=== PATIENT | male | born 1990 | race African-American/Black ===

== ENCOUNTER 2016-07-07 21:26 | Inpatient (IN) | payer SELFPAY ==
[~2016-07-07] VITALS: Ht 172.7 cm; Wt 99.2 kg
[2016-07-07] MEDS ORDERED: KETOROLAC TROMETHAMINE 30 MG/ML VIAL IV STA (22:04)
[2016-07-07] MEDS ORDERED: CEFTRIAXONE SOD INJ 1 GM ADDVIAL IV STA (22:08)
[2016-07-07] MEDS ORDERED: SODIUM CHLORIDE 0.9% 1000ML 1,000 ML IV ONE (22:15)
[2016-07-07] MEDS ORDERED: ACETAMINOPHEN IV 1,000 MG in EMPTY BAG 0 ML IV ONE (22:15)
[2016-07-07 22:16] LABS: URINE APPEARANCE CLEAR (CLEAR); URINE BILIRUBIN NEG (NEG); URINE COLOR DK YELLOW; URINE EPITHELIAL CELL AUTO >30 /lpf (0-5); URINE NITRITE NEG (NEG); URINE PH 5.5 (4.5-7.5); URINE SPECIFIC GRAVITY 1.037 (1.000-1.030); UROBILINOGEN NEG (NEG); ZZUR CULT IF INDIC CLEAN CATCH NO
[2016-07-07 22:17] LABS: MANUAL MICROSCOPIC REQUIRED? NO; REVIEW REQ? YES
[2016-07-07 22:34] LABS: BASO % 0.2 %; BASO ABS # 0.02 K/uL (0-0.2); COMPLETE YES; EOS % 0.2 %; HEMATOCRIT 45.1 % (42-52); IG% 0.2 %; LYMPH % 18.8 %; LYMPH ABS # 2.12 K/uL (1.2-3.4); MEAN CELL VOLUME 84.5 fL (80-100); MEAN CORPUSCULAR HEMOGLOBIN 29.2 pg (25-34); MEAN CORPUSCULAR HGB CONC 34.6 g/dl (32-36); MEAN PLATELET VOLUME 9.4 fL (7.4-10.4); MONO % 9.2 %; NEUT % 71.4 %; PLATELET COUNT 260 K/uL (130-400); RED BLOOD COUNT 5.34 M/uL (4.7-6.1); WHITE BLOOD COUNT 11.29 K/uL (4.8-10.8)
[2016-07-07 22:54] LABS: CALCIUM 8.9 mg/dl (8.5-10.1)
[2016-07-07 22:57] LABS: BUN/CREATININE RATIO 9.9 (10-20); C-REACTIVE PROTEIN 8.22 mg/dl (0-0.29); CREATININE 1.3 mg/dl (0.60-1.40); MAGNESIUM 2.2 mg/dl (1.8-2.4); POTASSIUM 3.4 mmol/L (3.5-5.1)
[2016-07-07] MEDS ORDERED: QUET1TAB30 PO (23:09)
[2016-07-07] MEDS ORDERED: SERT25TA PO (23:09)
[2016-07-07] MEDS ORDERED: ACETAMINOPHEN 1000 MG/100 ML IV IV ONE (23:10)
[2016-07-07 23:12] LABS: ALB/GLOB RATIO 0.8 (0.9-2); THYROID STIMULATING HORMONE 2.53 uIu/ml (0.300-4.500)
[2016-07-07 23:16] LABS: ANTI-STREP O SCR: 5YRS OR > POS IU/ml (<200 IU); ANTI-STREP O TITRE: 5YR OR > 200 IU/ml (<200 IU)
[2016-07-07 23:27] LABS: LYME DISEASE AB IGG NEG (NEG); LYME DISEASE AB IGM NEG (NEG)
[2016-07-07] MEDS ORDERED: POTASSIUM CHLORIDE 10 MEQ TABCR PO STA (23:32)
--- NOTE | 2016-07-08 00:20 | EMERGENCY ROOM VISIT NOTE ---
History First contact with patient: 21:57 Chief Complaint: URINARY SYMPTOMS Stated Complaint: PAINFUL URINATION Nursing Triage Summary: patient reports sore throat,patient reports pain with urination and fever History of Present Illness The patient is a 26 year old male who presents to the Emergency Room with complaints of sore throat symptoms for the past 4 or 5 days. The patient states that he began with painful urination and fever today. He did go to urgent care clinic where a rapid strep was negative. He has had a fever at home , and is not taking anything [id number] for his symptoms. He does not report chest pain, chest tightness, shortness of breath. No flank pain. He has not had similar symptoms in the past. Review of Systems More than 10 systems were reviewed and otherwise negative with the exception of history of present illness. Past Medical/Surgical History No chronic medical disease Family History No pertinent family history Social History Smoking Status: Never Smoker Occupation Status: employed Current/Historical Medications Scheduled Quetiapine Fumarate (Seroquel), 25 MG PO DAILY Sertraline (Zoloft), 25 MG PO DAILY Allergies Coded Allergies: No Known Allergies (Unverified , 07/07/16) Physical Exam Vital Signs Date Time Temp Pulse Resp B/P Pulse Ox O2 Delivery O2 Flow Rate FiO2 07/07/16 23:15 93 18 144/71 97 07/07/16 21:29 39.1 124 18 142/78 95 Room Air Physical Exam VITALS: Vitals are noted on the nurse's note and reviewed by myself. Vital signs with tachycardia and fever GENERAL: Well-developed, well-nourished, black male who appears ill but nontoxic. Patient is cooperative with the examination. HEAD: Normocephalic atraumatic. EARS: External ear normal. External auditory canals clear, tympanic membranes pearly longo without erythema or effusion bilaterally. EYES: Pupils equal round and reactive to light and accommodation. Conjunctivae without injection, sclerae without icterus. Extraocular movements intact. NOSE: Patent, turbinates without inflammation or discharge. MOUTH: Mucous membranes moist. Tonsils are 2+ enlarged with exudates. No evidence of peritonsillar abscess. Uvula midline. Airway patent. NECK: Supple without nuchal rigidity. No lymphadenopathy. No thyromegaly. Cervical spine is nontender. HEART: Regular rate and rhythm without murmurs gallops or rubs. LUNGS: Clear to auscultation bilaterally without wheezes, rales or rhonchi. No retractions or accessory muscle use. ABDOMEN: Positive normal bowel sounds x 4. Soft, nontender, without masses or organomegaly. No guarding or rebound tenderness. No CVA tenderness. MUSCULOSKELETAL: No muscle atrophy, erythema, or edema noted. Full range of motion without joint tenderness in all extremities. Medical Decision & Procedures Laboratory Results 07/07/16 22:20 Red Blood Count 5.34, Mean Corpuscular Volume 84.5, Mean Corpuscular Hemoglobin 29.2, Mean Corpuscular Hemoglobin Concent 34.6, Mean Platelet Volume 9.4, Neutrophils (%) (Auto) 71.4, Lymphocytes (%) (Auto) 18.8, Monocytes (%) (Auto) 9.2, Eosinophils (%) (Auto) 0.2, Basophils (%) (Auto) 0.2, Neutrophils # (Auto) 8.07, Lymphocytes # (Auto) 2.12, Monocytes # (Auto) 1.04, Eosinophils # (Auto) 0.02, Basophils # (Auto) 0.02 07/07/16 22:20 Test 07/07/16 21:55 07/07/16 22:20 Urine Color DK YELLOW Urine Appearance CLEAR (CLEAR) Urine pH 5.5 (4.5-7.5) Urine Specific [place] 1.037 (1.000-1.030) Urine Protein TRACE (NEG) Urine Glucose (UA) NEG (NEG) Urine Ketones TRACE (NEG) Urine Occult Blood 1+ (NEG) Urine Nitrite NEG (NEG) Urine Bilirubin NEG (NEG) Urine Urobilinogen NEG (NEG) Urine Leukocyte Esterase TRACE (NEG) Urine WBC (Auto) 5-10 /hpf (0-5) Urine RBC (Auto) 5-10 /hpf (0-4) Urine Hyaline Casts (Auto) 10-30 /lpf (0-5) Urine Epithelial Cells (Auto) >30 /lpf (0-5) Urine Bacteria (Auto) NEG (NEG) Urine Renal Epithelial Cells /lpf (0-5) White Blood Count 11.29 K/uL (4.8-10.8) Red Blood Count 5.34 M/uL (4.7-6.1) Hemoglobin 15.6 g/dL (14.0-18.0) Hematocrit 45.1 % (42-52) Mean Corpuscular Volume 84.5 fL (80-100) Mean Corpuscular Hemoglobin 29.2 pg (25-34) Mean Corpuscular Hemoglobin Concent 34.6 g/dl (32-36) Platelet Count 260 K/uL (130-400) Mean Platelet Volume 9.4 fL (7.4-10.4) Neutrophils (%) (Auto) 71.4 % Lymphocytes (%) (Auto) 18.8 % Monocytes (%) (Auto) 9.2 % Eosinophils (%) (Auto) 0.2 % Basophils (%) (Auto) 0.2 % Neutrophils # (Auto) 8.07 K/uL (1.4-6.5) Lymphocytes # (Auto) 2.12 K/uL (1.2-3.4) Monocytes # (Auto) 1.04 K/uL (0.11-0.59) Eosinophils # (Auto) 0.02 K/uL (0-0.5) Basophils # (Auto) 0.02 K/uL (0-0.2) RDW Standard Deviation 42.5 fL (36.4-46.3) RDW Coefficient of Variation 13.8 % (11.5-14.5) Immature Granulocyte % (Auto) 0.2 % Immature Granulocyte # (Auto) 0.02 K/uL (0.00-0.02) Erythrocyte Sedimentation Rate 62 mm/hr (0-14) Anion Gap 7.0 mmol/L (3-11) Est Creatinine Clear Calc Drug Dose 99.2 ml/min Estimated GFR () 87.9 Estimated GFR (Non- 75.8 BUN/Creatinine Ratio 9.9 (10-20) Lactic Acid Level 1.1 mmol/L (0.4-2.0) Calcium Level 8.9 mg/dl (8.5-10.1) Magnesium Level 2.2 mg/dl (1.8-2.4) Total Bilirubin 0.4 mg/dl (0.2-1) Aspartate Amino Transf (AST/SGOT) 71 U/L (15-37) Alanine Aminotransferase (ALT/SGPT) 42 U/L (12-78) Alkaline Phosphatase 63 U/L (45-117) Total Creatine Kinase 3107 U/L (39-308) C-Reactive Protein 8.22 mg/dl (0-0.29) Total Protein 8.9 gm/dl (6.4-8.2) Albumin 4.0 gm/dl (3.4-5.0) Globulin 4.9 gm/dl (2.5-4.0) Albumin/Globulin Ratio 0.8 (0.9-2) Thyroid Stimulating Hormone (TSH) 2.530 uIu/ml (0.300-4.500) Lyme Disease IgG Antibody NEG (NEG) Lyme Disease IgM Antibody NEG (NEG) Monoscreen NEG (NEG) Anti-Streptolysin O Antibody Screen POS IU/ml (<200 IU) Anti-Streptolysin O Antibody Titer 200 IU/ml (<200 IU) Date/Time Source Procedure Growth Status 07/07/16 21:55 Throat Group A Streptococcus Screen - Final SPECIMEN POSITIVE FOR GROUP A BETA ST... Complete 07/07/16 21:55 Throat Group A Streptococcus Screen (REMY) - Final Complete Medications Administered Medications (Trade) Dose Ordered Sig/Danika Route Start Time Stop Time Status Last Admin Dose Admin Sodium Chloride 1,000 ml @ 999 mls/hr Q1H1M ONCE IV 07/07/16 22:15 07/07/16 23:15 DC 07/07/16 22:15 999 MLS/HR Acetaminophen/ Empty Bag (Ofirmev Iv/ Empty Iv Bag 100ml) 100 ml @ 400 mls/hr NOW ONCE IV 07/07/16 22:15 07/07/16 22:29 DC 07/07/16 22:15 400 MLS/HR Ketorolac Tromethamine (Toradol Inj) 30 mg NOW STAT IV 07/07/16 22:04 07/07/16 22:07 DC 07/07/16 22:45 30 MG Ceftriaxone Sodium (Rocephin Inj) 1 gm NOW STAT IV 07/07/16 22:08 07/07/16 22:09 DC 07/07/16 22:45 1 GM ED Course Physical exam and history were performed. Nursing notes and EMR were reviewed. Patient appears to have sore throat and urine symptoms for the past several days. The patient is febrile and tachycardic on presentation. He is ill appearing. IV access was established and labs were obtained. The patient was hydrated and medicated as above. Rapid strep was performed and was positive. The patient's urine dip was with blood and protein, which was quite concerning. The patient was given Rocephin IV after blood cultures and lactic acid were gathered. The patient's blood work is as above and was reviewed. He does not have a significantly elevated white blood cell count, gross anemia, or significant electrolyte imbalance. His CK is elevated at over 3100 which is concerning for rhabdomyolysis. Additionally the patient's ASO titer is positive. His lactic acid and the lab is negative, and kidney function is currently within normal limits. Overall the patient did have some improvement of his symptoms after hydration and medication. I have concern for the patient's status secondary to his rhabdomyolysis and possible poststreptococcal glomerulonephritis. He is currently without obvious acute kidney injury, but this is certainly a concern. The patient case was discussed with the [facility] Hospitalist, who agreed to evaluate the patient here in the emergency department for further management. Please see their dictation for further patient course, plan, and disposition. The chart was completed utilizing [email or web address] Speech Voice Recognition Software. Grammatical errors, random word insertions, pronoun errors, and incomplete sentences are an occasional consequence of this system due to software limitations, ambient noise, and hardware issues. Any formal questions or concerns about the content, text, or information contained within the body of this dictation should be directly addressed to the provider for clarification. . Medical Decision Differential diagnoses includes, but is not limited to: Infection, sepsis, SIRS , rhabdomyolysis, post streptococcal glomerulonephritis, strep pharyngitis, acute kidney injury, dehydration, and others Impression Primary Impression: Rhabdomyolysis Additional Impressions: Acute streptococcal pharyngitis Elevated anti-streptolysin O antibodies Departure Information Referrals No Doctor, Assigned (PCP) Patient Instructions My [facility] Problem Qualifiers
[2016-07-08] MEDS ORDERED: IBUPROFEN 200 MG TAB PO PRN (01:00)
[2016-07-08] MEDS ORDERED: ONDANSETRON INJ 2 MG/ML 2 ML VIAL IV PRN (01:00)
[2016-07-08] MEDS ORDERED: KETOROLAC TROMETHAMINE 30 MG/ML VIAL IV PRN (01:00)
[2016-07-08] MEDS ORDERED: LORAZEPAM 2 MG/ML 1 ML VIAL IV PRN (01:00)
[2016-07-08] MEDS ORDERED: TRAMADOL HCL 50 MG TAB PO PRN (01:00)
[2016-07-08] MEDS: NSS + 20MEQ KCL 1000ML 1,000 ML IV SCH ×5 (01:54→21:01)
[2016-07-08 02:00] VITALS: BP 143/87; PULSE 98; TEMP 37; O2SAT 97
[2016-07-08] MEDS ORDERED: SERTRALINE HCL 50 MG TAB PO ONE (02:32)
[2016-07-08] MEDS ORDERED: QUETIAPINE FUMARATE 25 MG TAB PO ONE (02:32)
[2016-07-08 04:10] VITALS: BP 143/87; PULSE 98; TEMP 37; O2SAT 97; Ht 172.7 cm; Wt 99.2 kg
[2016-07-08] MEDS ORDERED: LEVOFLOXACIN 500 MG TAB PO SCH (06:00)
[2016-07-08 06:15] LABS: BASO % 0.2 %; BASO ABS # 0.02 K/uL (0-0.2); COMPLETE YES; EOS % 0.2 %; HEMATOCRIT 40.8 % (42-52); IG% 0.1 %; LYMPH ABS # 2.48 K/uL (1.2-3.4); MEAN CORPUSCULAR HEMOGLOBIN 28.5 pg (25-34); MEAN CORPUSCULAR HGB CONC 33.6 g/dl (32-36); MEAN PLATELET VOLUME 9.3 fL (7.4-10.4); MONO % 5.8 %; NEUT % 69.7 %; PLATELET COUNT 239 K/uL (130-400); WHITE BLOOD COUNT 10.35 K/uL (4.8-10.8)
[2016-07-08 06:20] LABS: PROTHROMBIN TIME (PATIENT) 10.6 SECONDS (9.0-12.0)
[2016-07-08 07:03] LABS: BUN/CREATININE RATIO 10.2 (10-20); CREATININE 1.2 mg/dl (0.60-1.40); POTASSIUM 3.9 mmol/L (3.5-5.1)
[2016-07-08 07:19] VITALS: BP 113/71; PULSE 99; TEMP 37.3; O2SAT 95
--- NOTE | 2016-07-08 07:33 | DIAGNOSTIC IMAGING REPORT ---
CHEST ONE VIEW PORTABLE HISTORY: fever COMPARISON: None. FINDINGS: The lungs are clear. Cardiac silhouette is normal in size. No pleural effusions. No pneumothorax. IMPRESSION: No acute process. Electronically signed by: Asim Rushing M.D. 07/08/2016 7:32 AM Dictated Date/Time: 07/08/2016 7:31 AM
[2016-07-08] MEDS ORDERED: QUETIAPINE FUMARATE 25 MG TAB PO SCH ×2 (08:00→22:00)
[2016-07-08] MEDS ORDERED: LEVOFLOXACIN CONSULT ACTIVE PRN (08:00)
[2016-07-08] MEDS ORDERED: INFLUENZA VIRUS QUAD VACCINE 0.5 ML SYR IM. ONE (08:00)
[2016-07-08] MEDS ORDERED: INFLUENZA ADMINISTRATION CHARGE ONE (08:00)
[2016-07-08] MEDS ORDERED: SERTRALINE HCL 50 MG TAB PO SCH ×2 (08:00→22:00)
[2016-07-08] MEDS: ENOXAPARIN 40 MG/0.4 ML SYR SQ SCH (08:01)
--- NOTE | 2016-07-08 08:28 | HISTORY & PHYSICAL EXAMINATION ---
DATE OF ADMISSION: 07/08/2016 PRIMARY CARE PHYSICIAN: No primary care doctor. CHIEF COMPLAINT: Fever, sore throat, aches. HISTORY OF PRESENT ILLNESS: Hx obtained from px and records. Medical history significant for mood disorder. Last few days, patient noted a sore throat, some dysphagia symptoms. No chest pain, no sob. Px noted fever, chills, painful urination, dark urine. Seen at urgent care center. Initial strep swab was negative. Diagnosis was acute pharyngitis. Patient went to the ER for worsening symptoms. Strep screen was positive. UA noted to have trace wbc esterase. occult blood positive. Patient received Ceftriaxone in the Emergency Room. MEDICAL HISTORY: As above. SURGERIES: None. HOME MEDICATIONS: Include sertraline, Seroquel. ALLERGIES: No known drug allergies. FAMILY HISTORY: Hypertension. PERSONAL AND SOCIAL HISTORY: Nonsmoker. No chronic intake of alcohol. 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 REVIEW OF SYSTEMS: As per HPI, all other ROS negative. PHYSICAL EXAMINATION: VITAL SIGNS: Blood pressure was noted to be 142/78, pulse rate 154 and later 93, RR 18, temperature 37.1, sats 95% on room air. GENERAL: Noted to be slightly uncomfortable. No respiratory distress. Obese. SKIN: Normal color. HEENT: [place] palpebral conjunctivae. Dry mucosa. Enlarged tonsils, hyperemic. NECK: Short. LUNGS: Decreased breath sounds. HEART: Regular rate and rhythm. ABDOMEN: Some distention, nontender. EXTREMITIES: No edema, tenderness. NEUROLOGIC: No gross focality. LABS: Hemoglobin was noted to be 15.6, hematocrit 45, white cells 11.39, platelets 260. Sodium 133, potassium 3.4, chloride 97, CO2 of 29, BUN 13, creatinine 1.3. CPK 3107. ASSESSMENT: 1. Sepsis multifactorial : acute strep pharyngitis symptomatic urinary tract infection. 2. Rhabdomyolysis secondary to illness. 3. hypokalemia secondary to illness. 4. Mood disorder, stable on meds. PLAN: GMF ff Cultures. Levaquin to target both sources of infection. Monitor CPK response to IV fluids. Replace potassium DVT prophylaxis, Lovenox subQ. Full code. MTDD
[2016-07-08] MEDS ORDERED: LEVOFLOXACIN 250 MG TAB PO ONE (12:00)
[2016-07-08] MEDS: ACETAMINOPHEN 325 MG TAB PO PRN ×2 (13:25→18:55)
[2016-07-08] MEDS ORDERED: NURSING VERBAL MED ORDER ONE (14:00)
[2016-07-08 14:38] VITALS: BP 118/69; PULSE 95; TEMP 38; O2SAT 94
[2016-07-08] MEDS: AMPICILLIN INJ 250 MG in SODIUM CHLORIDE 0.9% 50ML 50 ML IV SCH (18:35)
--- NOTE | 2016-07-08 20:03 | Progress Note ---
Progress Note Date of Service July 08, 2016. Progress Note ATTENDING NOTE : pt admitted earlier today please refer to H&P documentation earlier today for detail Briefly 26 yo M recently moved form [place] 2 days back to [place] presented with 3-4 days of fever , sore throat found to have streptoccocal pharyngitis UA grossly positive also with elevated CPK > 3000 suggestive of rhabdomyolysis will change Abx to Ampicillin IV -DC Levaquin ( evidence of increasing resistance to quinolones ) ID eval requested rhabdomyolysis : pt mention of lifting heavy wt past few days for packing , recently moved form [facility] ~2 days back cont IV hydration renal function remains stable follow daily CPK DISPOSITION ; possible discharge home tomorrow if remains stable Clinically does not have any PCP locally willing to establish care with Family physician in [place] will update scheduling and arrange for post hospital follow up
[2016-07-09 00:04] VITALS: BP 115/63; PULSE 89; TEMP 37.2; O2SAT 98
[2016-07-09] MEDS: AMPICILLIN INJ 250 MG in SODIUM CHLORIDE 0.9% 50ML 50 ML IV SCH ×3 (01:00→11:53)
[2016-07-09] MEDS: NSS + 20MEQ KCL 1000ML 1,000 ML IV SCH ×2 (03:34→10:12)
[2016-07-09] MEDS: ACETAMINOPHEN 325 MG TAB PO PRN (04:10)
[2016-07-09 04:14] VITALS: TEMP 37.5
[2016-07-09 06:57] VITALS: BP 120/78; PULSE 85; TEMP 36.8; O2SAT 98
[2016-07-09] MEDS ORDERED: SERTRALINE HCL 50 MG TAB PO SCH (08:00)
[2016-07-09] MEDS: ENOXAPARIN 40 MG/0.4 ML SYR SQ SCH (08:02)
[2016-07-09 08:06] LABS: BUN/CREATININE RATIO 6.3 (10-20); CALCIUM 8.2 mg/dl (8.5-10.1); CREATININE 0.97 mg/dl (0.60-1.40); POTASSIUM 4.1 mmol/L (3.5-5.1)
--- NOTE | 2016-07-09 10:19 | Progress Note ---
Progress Note Date of Service July 09, 2016. Progress Note ID Consult Dictated #[id number] A/P: 1. Strep Pharyngitis 2. Leukocytosis -resolved 3. Fever - resolved -Can transition to po amoxicillin 500mg po tid with food to complete 10 days -ok for d/c from ID standpoint -thank you
[2016-07-09] MEDS ORDERED: SODIUM CHLORIDE 0.9% 1000ML 1,000 ML IV SCH (10:30)
[2016-07-09] MEDS ORDERED: LEVOFLOXACIN 750 MG TAB PO SCH (11:00)
--- NOTE | 2016-07-09 13:36 | INFECT. DISEASE CONSULTATION ---
DATE OF CONSULTATION: 07/09/2016 REQUESTING PHYSICIAN: Dr. Valdez. 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 He did have a history of subjective fevers and chills as well. Laboratory studies did show the patient to be in rhabdomyolysis with a CK greater than 3000. He also had a mild leukocytosis of 11.2. He was febrile upon admission with a temperature of 39.1. Overnight, his T-max was 38, but he is currently afebrile. He had a throat swab, which was positive for group A strep. Blood cultures were obtained and are negative. A Lyme screen was obtained and is negative as well. His sed rate is elevated at 62. His CRP is elevated as well. Urinalysis was unremarkable. He currently states he is feeling significantly better. He ate breakfast this morning with no issues. He denies any dysphasia or odynophagia. He denies any fevers or chills. He denies any neck pain or headache. He denies any chest pain, cough, shortness of breath, nausea, vomiting or diarrhea. He is asking to be discharged from the hospital on oral antibiotics. All remaining review of systems is reviewed and is unremarkable. PAST MEDICAL HISTORY: He has a past medical history significant for mood disorder. PAST SURGICAL HISTORY: He has no surgical history. ALLERGIES: He has no known drug allergies. FAMILY HISTORY: Noncontributory. SOCIAL HISTORY: Negative for tobacco use, alcohol use or drug use. He currently is a student. CURRENT MEDICATIONS: Include Zoloft, Seroquel, ampicillin, Lovenox, Tylenol, Zofran, Toradol, Advil, Motrin, and Ativan. PHYSICAL EXAMINATION: VITAL SIGNS: He is afebrile, pulse 85, respiratory rate 19, blood pressure 120/78, and oxygen saturation is 98% on room air. GENERAL: He is awake, alert and oriented x3. He is in no acute distress. HEENT: Mucous membranes are moist. There is a tonsillar swelling, but no exudate is noted. There is no cervical adenopathy. HEART: Regular. LUNGS: Clear bilaterally. ABDOMEN: Soft, nontender, and nondistended. EXTREMITIES: There is no lower extremity edema bilaterally. LABORATORY AND IMAGING STUDIES: CBC yesterday reveals a white blood cell count of 10.3, hemoglobin 13.7, and platelets 239. Sed rate on admission was 62. Chemistry panel today reveals sodium of 140, potassium 4.1, chloride 105, bicarbonate 30, BUN 6, creatinine 0.9, and glucose 92. Total CK is down to 2295. LFTs were within normal limits on admission. CRP was elevated at 8.2. Urinalysis was negative. Lyme titer is negative. Hemphill screen was negative. ASO was elevated at 200. Blood cultures from the are no growth to date x2 sets. C. diff was done on the and was negative. Throat swab was positive for group A strep in the ER. A chest x-ray done on the showed no acute disease. ASSESSMENT AND PLAN: 1. Strep pharyngitis. 2. Leukocytosis, resolved. At this time, he can be transitioned to oral amoxicillin 500 mg 3 times a day with food. He will need a total duration of 10 days. I do not see any contraindication to discharge home from the infectious disease standpoint. Thank you for this consultation.
[2016-07-09] MEDS ORDERED: IBUP-1105 PO (15:32)
--- NOTE | 2016-07-09 15:33 | Discharge Instructions ---
Discharge Instructions Date of Service July 09, 2016. Admission Reason for Admission: Rhabdomyolysis Discharge Discharge Diagnosis / Problem: STREPOCCUS PHARYNGITIS /RHABDOMYOLYSIS Discharge Goals Goal(s): Decrease discomfort, Diagnostic testing Activity Recommendations Activity Limitations: resume your previous activity . Instructions / Follow-Up Instructions / Follow-Up HOSPITAL FOLLOW UP ON 07/13/2016 11:00 AM Gideon Mccurdy MD [facility] LAB WORK : CPK LEVEL ON Saturday07/13/16 CONTINUE TO DRINK PLENTY FOR FLUID Current Hospital Diet Patient's current hospital diet: Low Lactose Diet Discharge Diet Recommended Diet: Low Lactose Diet Pending Studies Studies pending at discharge: yes List of pending studies: LAB WORK : CPK LEVEL ON Saturday07/13/16 Medical Emergencies . Who to Call and When: Medical Emergencies: If at any time you feel your situation is an emergency, please call 911 immediately. . Non-Emergent Contact Non-Emergency issues call your: Primary Care Provider . . "Provider Documentation" section prepared by Elizabeth Valdez. . VTE Core Measure Inpt VTE Proph given/why not?: Graciela South, SCD's
[2016-07-09] MEDS ORDERED: AMOX1TAB43 PO (15:34)
[2016-07-09 15:39] VITALS: BP 139/73; PULSE 92; TEMP 37.2; O2SAT 99
--- NOTE | 2016-07-09 16:30 | Progress Note ---
Internal Med Progress Note Date of Service: July 09, 2016. Provider Documentation: SUBJECTIVE: feels fine, no complain of fever or chills no SOB , chest discomfort no sore throat no complain of muscle aches or pain OBJECTIVE: Vital Signs-as noted below Exam: General-no sign of distress Eyes-sclera non icteric Lungs-CTA , no wheeze or rales Heart-regular S1/S2 Abdomen-soft, non tender Extremities-no lower ext edema Neuro-AAO x3, no focal neurological deficit Lab data as noted below. ASSESSMENT & PLAN: Streptoccocal pharyngitis on Abx to Ampicillin IV -DC Levaquin ( evidence of increasing resistance to quinolones ) ID eval requested appreciate input pt will be discharged home with Amoxicillin 500 mg PO BID for total 10 days remains afebrile , normal white count no complain of sore throat or cough pt is scheduled to see Dr Mccurdy at [facility] next 07/13 Rhabdomyolysis : pt mention of lifting heavy wt past few days for packing , recently moved form [facility] ~2 days back cont IV hydration renal function remains stable CPK level remain in ~1999 no complain of muscle pain or ache renal function remains stable stable to be discharged home today repeat CPK level on Saturday07/11/16 DVT PROPHYLAXIS low risk SCD and teds ambulate DISPOSITION Discharge home today recently moved to [place] follow up scheduled with [facility] on Saturday07/13/16 Vital Signs: Date Time Temp Pulse Resp B/P Pulse Ox O2 Delivery O2 Flow Rate FiO2 07/09/16 15:39 37.2 92 18 139/73 99 Room Air 07/09/16 08:00 Room Air 07/09/16 06:57 36.8 85 19 120/78 98 Room Air 07/09/16 04:14 37.5 07/09/16 00:30 Room Air 07/09/16 00:04 37.2 89 20 115/63 98 Room Air Lab Results: Results Past 24 Hours Test 07/09/16 07:01 Range/Units Sodium Level 140 136-145 mmol/L Potassium Level 4.1 3.5-5.1 mmol/L Chloride Level 105 98-107 mmol/L Carbon Dioxide Level 30 21-32 mmol/L Anion Gap 5.0 3-11 mmol/L Blood Urea Nitrogen 6 7-18 mg/dl Creatinine 0.97 0.60-1.40 mg/dl Est Creatinine Clear Calc Drug Dose 132.9 ml/min Estimated GFR () 125.2 Estimated GFR (Non- 108.1 BUN/Creatinine Ratio 6.3 10-20 Random Glucose 92 70-99 mg/dl Calcium Level 8.2 8.5-10.1 mg/dl Total Creatine Kinase 2295 39-308 U/L Microbiology Results 07/08/16 Urine Culture - Preliminary, Resulted NO GROWTH - LESS THAN 1,000 COLONIES/...
--- NOTE | 2016-07-09 16:37 | Discharge Summary ---
Discharge Summary Date of Service July 09, 2016. Discharge Summary Admission Date: July 08, 2016 at 00:31 Discharge Date: July 09, 2016 Discharge Disposition: Home Principal Diagnosis: STREPTOCOCCUS PHARYNGITIS /RHABDOMYOLYSIS Consultations: ID DR BORJA Medication Reconciliation New Medications: Amoxicillin & Pot Clavulanate (Amoxicillin/Clavulanate P) 1 Tab Tab 1 TAB PO BID for 10 Days, #20 TAB Ibuprofen (Ibuprofen) 200 Mg Tab 400 MG PO Q6H PRN for pain, #30 TAB TAKE WITH FOOD Continued Medications: Quetiapine Fumarate (Seroquel) 25 Mg Tab 25 MG PO DAILY, TAB Sertraline (Zoloft) 25 Mg Tab 25 MG PO DAILY, TAB Referrals At Discharge Follow up Referrals: Physician Referral - 07/13/16 with Gideon Mccurdy M.D. Admission Information HPI (per Admitting provider): DATE OF ADMISSION: 07/08/2016 PRIMARY CARE PHYSICIAN: No primary care doctor. CHIEF COMPLAINT: Fever, sore throat, aches. HISTORY OF PRESENT ILLNESS: Hx obtained from px and records. Medical history significant for mood disorder. Last few days, patient noted a sore throat, some dysphagia symptoms. No chest pain, no sob. Px noted fever, chills, painful urination, dark urine. Seen at urgent care center. Initial strep swab was negative. Diagnosis was acute pharyngitis. Patient went to the ER for worsening symptoms. Strep screen was positive. UA noted to have trace wbc esterase. occult blood positive. Patient received Ceftriaxone in the Emergency Room. MEDICAL HISTORY: As above. SURGERIES: None. HOME MEDICATIONS: Include sertraline, Seroquel. ALLERGIES: No known drug allergies. FAMILY HISTORY: Hypertension. PERSONAL AND SOCIAL HISTORY: Nonsmoker. No chronic intake of alcohol. Law student. -Citizen Of [place] ethnicity. REVIEW OF SYSTEMS: As per HPI, all other ROS negative. Physical Exam (per Admitting): PHYSICAL EXAMINATION: VITAL SIGNS: Blood pressure was noted to be 142/78, pulse rate 154 and later 93, RR 18, temperature 37.1, sats 95% on room air. GENERAL: Noted to be slightly uncomfortable. No respiratory distress. Obese. SKIN: Normal color. HEENT: Lane palpebral conjunctivae. Dry mucosa. Enlarged tonsils, hyperemic. NECK: Short. LUNGS: Decreased breath sounds. HEART: Regular rate and rhythm. ABDOMEN: Some distention, nontender. EXTREMITIES: No edema, tenderness. NEUROLOGIC: No gross focality. Hospital Course Streptoccocal pharyngitis on Abx to Ampicillin IV -DC Levaquin ( evidence of increasing resistance to quinolones ) ID gretchen requested appreciate input pt will be discharged home with Amoxicillin 500 mg PO BID for total 10 days remains afebrile , normal white count no complain of sore throat or cough pt is scheduled to see Dr Mccurdy at [facility] next 07/13 Rhabdomyolysis : pt mention of lifting heavy wt past few days for packing , recently moved form [facility] ~2 days back cont IV hydration renal function remains stable CPK level remain in ~1999 no complain of muscle pain or ache renal function remains stable stable to be discharged home today repeat CPK level on Saturday07/11/16 DVT PROPHYLAXIS low risk SCD and teds ambulate DISPOSITION Discharge home today recently moved to [place], [place] [facility] follow up scheduled with Dr Mccurdy at [facility] on Saturday07/13/16 Total time spent on discharge = 40 MINS This includes examination of the patient, discharge planning, medication reconciliation, and communication with other providers. Discharge Instructions Discharge Instructions Date of Service July 09, 2016. Admission Reason for Admission: Rhabdomyolysis Discharge Discharge Diagnosis / Problem: STREPTOCOCCUS PHARYNGITIS /RHABDOMYOLYSIS Discharge Goals Goal(s): Decrease discomfort, Diagnostic testing Activity Recommendations Activity Limitations: resume your previous activity . Instructions / Follow-Up Instructions / Follow-Up HOSPITAL FOLLOW UP ON 07/13/2016 11:00 AM Gideon Mccurdy MD Family Practice [facility] LAB WORK : CPK LEVEL ON Saturday07/13/16 CONTINUE TO DRINK PLENTY FOR FLUID Current Hospital Diet Patient's current hospital diet: Low Lactose Diet Discharge Diet Recommended Diet: Low Lactose Diet Pending Studies Studies pending at discharge: yes List of pending studies: LAB WORK : CPK LEVEL ON Saturday07/13/16 Medical Emergencies . Who to Call and When: Medical Emergencies: If at any time you feel your situation is an emergency, please call 911 immediately. . Non-Emergent Contact Non-Emergency issues call your: Primary Care Provider . . "Provider Documentation" section prepared by Elizabeth Valdez. . VTE Core Measure Inpt VTE Proph given/why not?: Graciela South, SCD's Additional Copies To Gideon Mccurdy M.D.
[2016-07-09 16:44] VITALS: BP 139/73; PULSE 92; TEMP 37.2; O2SAT 99
== END 2016-07-09 16:45 | disposition home or self-care (01) | DRG 153 ==
LOC: ENRESERVTM → ENRESERVDT → C.EDB 21:29 → C.MS4W 07-08 00:31
PROVIDERS: ADMIT Internal Medicine; ATTEND Hospitalist
DX: J02.0 Streptococcal pharyngitis (principal); M62.82 Rhabdomyolysis; E87.6 Hypokalemia; F39 Unspecified mood [affective] disorder; D72.829 Elevated white blood cell count, unspecified